=== PATIENT | female | born 1980 | race Caucasian/White ===

== ENCOUNTER 2016-04-23 12:31 | Day surgery (SDC) | payer BC ==
[~2016-04-23 12:31] MED LIST: CEFAZOLIN 2 Gram 50 ML IVPB ONE
[2016-04-23] MEDS ORDERED: SEVOFLURANE 250 ML INH ONE (14:00)
[2016-04-23] MEDS ORDERED: PROPOFOL 10 MG/ML VIAL IV ONE (14:00)
[2016-04-23] MEDS ORDERED: ONDANSETRON HCL IV 4 MG/2 ML VIAL IVP ONE (14:00)
[2016-04-23] MEDS ORDERED: LIDOCAINE 2% MDV (20MG/ML) 20ML VIAL IV ONE (14:00)
[2016-04-23] MEDS ORDERED: MIDAZOLAM HCL 2MG/2ML VIAL IV ONE (14:00)
[2016-04-23] MEDS ORDERED: FENTANYL PF 100MCG/2ML VIAL IV ONE (14:00)
--- NOTE | 2016-04-24 15:06 | Operative Note ---
DATE OF PROCEDURE: 04/24/2016 PREOPERATIVE DIAGNOSIS: URINARY URGE INCONTINENCE. POSTOPERATIVE DIAGNOSIS: URINARY URGE INCONTINENCE. SURGEON: ASAEL MIRAMONTES M.D. PROCEDURE: CYSTOSCOPY. BILATERAL RETROGRADE PYELOGRAMS. PELVIC EXAM UNDER ANESTHESIA. ANESTHESIA: GENERAL. INDICATIONS: This 35-year-old female with a history of complicated hysterectomy fairly recently. 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 She has been having urge incontinence and presents today for cystoscopic and pelvic examination to rule out any urinary tract involvement with the device. PROCEDURE: Pre-operative informed consent was obtained. Antibiotics were given. Sedation was administered. The patient was brought to the Operating Room, placed in the lithotomy position with the genitalia prepped and draped sterilely. Cystoscopy was performed. The urethra appears unremarkable. The bladder was entered and inspected systematically. No abnormalities were seen and the ureteral orifices had normal appearance and positioning. Specifically, I saw no evidence of foreign body or evidence of external compression on the bladder. Furthermore, no evidence of fistula. Both ureteral orifices were effluxing clear urine. Under fluoroscopic guidance, retrograde injection of contrast was performed into both ureters and retrograde pyelograms were thus obtained. Given the fine detailed limitations of mobile fluoroscopy, I did not see any evidence of any upper tract gross abnormality, filling defect, stricture , or dilatation and drainage was prompt bilaterally. The bladder then emptied and the scope was withdrawn and pelvic examination was carefully carried out. The patient's cervix is still palpable and was mobile. There was no evidence of bladder or pelvic fixation, mass, or abnormality. There was no evidence of bleeding. Pelvic examination was felt to be quite normal as well and the procedure was terminated. The patient was transferred to Recovery in stable condition. PLAN: I see no genitourinary tract abnormality on today's evaluation. She will be following up in the clinic to discuss treatment for urge incontinence if this is a persisting issue. Asael Miramontes M.D. Date & Time cc: BERNARDO Pires JOB NUMBER: [id number] MTDD
== END 2016-04-23 15:53 | disposition home or self-care (01) ==
LOC: SUR 12:31
PROVIDERS: ATTEND Urology
DX: N39.41 Urge incontinence (principal); I10 Essential (primary) hypertension
CPT/HCPCS: 52005; 00910; J2405; J3010; J0690